=== PATIENT | male | born 1960 | race Caucasian/White ===

== ENCOUNTER 2016-11-03 01:28 | Inpatient (IN) | payer OTHER ==
--- NOTE | ~2016-11-03 | CO ---
Unit #: [id number] #: [id number] Patient: HENRIK GAMINO [id number] [place] [address] [id number] I MR#: [id number] NAME: HENRIK GAMINO ROOM: 82 Age: 56 Sex: M Admission Date: 11/03/2016 : 1960 Attending Physician: Mitchell Fernández M.D. Primary Care Physician: Primary Care Physician No Consultation Date: 11/03/2016 CONSULTATION REPORT Henrik is a 56-year-old with very poor foot hygiene. He is admitted with a very dry thick callus skin. Foot soaks will be provided to him on a daily basis. Dictated by... Sarah Beth Mcpherson P.A.-C. for Nuria Hendrickson/naesem TD: 11/12/2016 18:54 JOB #: [id number] CONSULTATION REPORT Page 1 of 1 X Sarah Beth Mcpherson CONSULTATION REPORT
--- NOTE | ~2016-11-03 | HP ---
Unit #: [id number] #: [id number] Patient: HENRIK GAMINO [id number] [place] [address] [id number] I MR#: [id number] NAME: HENRIK GAMINO. ROOM: P182 Age: 56 Sex: M Admission Date: 11/03/2016 : 1960 Attending Physician: Mitchell Fernández M.D. Admitting Physician: Mitchell Fernández M.D. Primary Care Physician: No Primary Care Physician HISTORY AND PHYSICAL HISTORY OF PRESENT ILLNESS Henrik is a 56-year-old admitted to [facility] because of his continued abuse of alcohol. PAST MEDICAL HISTORY 1. Long history of alcohol abuse. 2. History of withdrawal seizures. PAST SURGICAL HISTORY 1. Inguinal hernia repair. 2. T and A. 3. Right ear. 4. Fractured left leg, right clavicle, right elbow, and right ankle with ORIF. ALLERGIES Codeine. SOCIAL HISTORY Smokes one pack per day. Drinks on a daily basis. Denies illicit drug use. FAMILY HISTORY Medically noncontributory. REVIEW OF SYSTEMS CONSTITUTIONAL: No fever or chills. HEENT: Denies any sore throat, ear pain or runny nose. CARDIOVASCULAR: Denies chest pain, irregular heart rhythm or palpitations. CHEST: Denies shortness of breath or cough. No hemoptysis. GASTROINTESTINAL: Denies nausea, vomiting, diarrhea or chronic constipation. ENDOCRINE: Denies history of increased thirst or urination. No recent significant weight loss or gain. GENITOURINARY: Denies dysuria, frequency, or hematuria. SKIN: Denies any rashes. HEMATOLOGIC: Denies history of increased bleeding or bruising. MUSCULOSKELETAL: Denies any hot, swollen joints. No generalized muscle pain. NEUROLOGIC: Denies problems with vision or speech. No frequent, severe headaches. No numbness, tingling or weakness in any extremities. Denies loss of bladder or bowel control. Unit #: [id number] #: [id number] Patient: HENRIK GAMINO CURRENT MEDICATIONS 1. Detox protocol. 2. Triamcinolone cream to his feet. PHYSICAL EXAMINATION GENERAL: Alert, well nourished, and in no apparent distress. VITAL SIGNS: Blood pressure 120/82, heart rate 80, respirations 16, temperature 98.6, weight 145 pounds, and height 6 feet, 0 inches. SKIN: Warm and dry without rash or lesion. HEENT: Normocephalic. TMs not viewed. Oral and nasal passages clear. Conjunctivae clear. PERRLA. EOMs intact. NECK: Supple without lymphadenopathy or thyromegaly. HEART: Regular rate and rhythm without murmur. LUNGS: Clear. ABDOMEN: Soft, nontender. : Not done. EXTREMITIES: No evidence of cyanosis, clubbing or edema. Moves all without focal deficit. NEUROLOGICAL: Grossly within normal limits. Cranial Nerves: II: Visual galeano are intact. III, IV AND : Extraocular movements are intact. Pupils are equal, round and reactive to light. V: Facial sensation is grossly normal. VII: Facial movements and expression are normal. VIII: Auditory acuity grossly intact. IX, X: Uvula is midline. Phonation is normal. XI: Patient shrugs shoulders and turns head normally. XII: Tongue protrudes in the midline. Sensory and Motor Function: Sensory and motor sensation is grossly normal. Motor: moves all extremities well. Coordination: Gait is normal. Deep Tendon Reflexes: Intact. IMPRESSION Psychiatric admission. RECOMMENDATIONS PSYCHIATRIC: Per psychiatrist. MEDICAL: I see no contraindication to participating in facility's activities. MEDICAL PROGNOSIS Good. MEDICAL CONDITION Stable. Dictated by... Zane CardenasAJoe. for Nuria Hendrickson/rufina TD: 11/04/2016 09:32 JOB #: [id number] Unit #: [id number] #: [id number] Patient: HENRIK GAMINO HISTORY AND PHYSICAL Page 1 of 1 X Sarah Beth Mcpherson HISTORY AND PHYSICAL
--- NOTE | ~2016-11-03 | A ---
[facility] Nutrition Therapy DATE: 11/03/16 Patient: HENRIK GAMINO Physician: WING Address: [address] Room/Bed: [address], Zip: [place] [address] Admit Date: 11/03/16 Date of : [birth year] Height: 6 0 Weight: [phone] NUTRITIONAL ASSESSMENT: REASON: UNINTENTIONAL WEIGHT LOSS PATIENT ADMITTED FOR ETOH DETOX PMH: WITHDRAWAL SEIZURES Anthropometrics: HT: 72", WT: 145#, BMI: 19.7, %IBW: 81 Labs: NO LABS AVAILABLE Meds: DETOX PROTOCOL Assessment: PATIENT IS A 56 Y/O MALE ADMITTED FOR ETOH DETOX. PATIENT CURRENTLY WORKS [employer], LIVES WITH A FRIEND, HAS DAILY ETOH USE, FREQUENT MARIJUANA USE, AND A HX OF COCAINE ABUSE. PATIENT HAS A HX OF INPATIENT CHEMICAL DEPENDENCY TREATMENT AND IT IS NOTED THAT HIS MOTHER IN JULY 2016, WHICH HAS LED TO AN INCREASE IN HIS ETOH USE. PATIENT STATED A POOR APPETITE WITH A 15# WEIGHT LOSS OVER LAST SEVERAL MONTHS, AND HE IS NOT SLEEPING. WEIGHT HX PER [employer] SHOWS HIS UBW IS AROUND 150# FOR THE LAST 3 YEARS. LAST ADMIT 1 YEAR AGO PATIENT'S WEIGHT WAS 150#. THERE ARE CURRENTLY NO PO INTAKES D/T PATIENT ADMITTED TO FACILITY TODAY. THERE ARE NO SKIN OR GI ISSUES NOTED ATT. PATIENT'S BMI IS WITHIN A HEALTHY RANGE, HOWEVER HIS IBW IS 81%. PATIENT IS ON A REGULAR VEGETARIAN DIET WITH NO CAFFEINE, AND HE IS RECEIVING ENSURE TID. Dx: UNINTENTIONAL WEIGHT LOSS R/T ETOH ABUSE AEB SELF-REPORTED WEIGHT LOSS AND DECREASED APPETITE, IBW <90%, NUTRITIONAL RISK POINT Intervention: REGULAR VEGETARIAN DIET, SUPPLEMENTS, MEDS PER MD, DETOX, PSYCH Monitoring, Evaluation and Goals: 1. ADEQUATE PO INTAKES >50% OF MEALS 2. PREVENT, CORRECT MICRO/MACRO NUTRIENT DEFICIENCIES 3. WEIGHT; PREVENT ANY FURTHER WEIGHT LOSS MONITOR: WEIGHTS, LABS, PO/FLUID/SUPPLEMENT INTAKES Recommendations: 1. CONTINUE REGULAR VEGETARIAN DIET WITH NO CAFFEINE AND ENSURE TID TOLERATED. OFFER SNACKS BETWEEN MEALS. IF PATIENT HAS C/O HUNGER SEND ORDER FOR LARGER PORTIONS AND RD WILL APPROVE [facility] Nutrition Therapy DATE: 11/03/16 Patient: HENRIK GAMINO Physician: WING Address: [address] Room/Bed: [address] [place] [address], Zip: [place] [address] Admit Date: 11/03/16 Date of : [birth year] Height: 6 0 Weight: 144 65.38625 2. ENCOURAGE ADEQUATE PO, FLUID, AND SUPPLEMENT INTAKES 3. OBTAIN WEIGHTS ROUTINELY (EVERY 3-4 DAYS) RD TO F/U PER PROTOCOL AND PRN R/T PATIENT MILDLY COMPROMISED Respectfully, ILDA DEAN RD, LD [facility] cc: client file
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
--- NOTE | ~2016-11-03 | DS ---
Unit #: [id number] #: [id number] Patient: HENRIK GAMINO [id number] [place] [address] [id number] I MR#: [id number] NAME: HENRIK GAMINO. ROOM: P182 Age: 56 Sex: M Admission Date: 11/03/2016 : 1960 Discharge Date: 11/07/2016 Attending Physician: Mitchell Fernández M.D. Primary Care Physician: Primary Care Physician No DISCHARGE SUMMARY REASON FOR ADMISSION This patient is a 56-year-old male who has a long history of alcohol abuse. This patient came to the hospital requesting alcohol detox. DIAGNOSTIC STUDIES LABORATORY RESULTS: Please see hospital medical records. HOSPITAL COURSE This patient was admitted for alcohol detox. He was placed on appropriate medications to assist with withdrawal. He is attending groups and participated in unit activities. The patient requested discharge on 10/28/2016. He denied any SI or HI and contracts for safety. The patient plans to follow up with AA meetings and obtain AA sponsor. The patient says he is aware of the community resources. The patient was seen the day before and reported a few shakes, but no other withdrawal symptoms. His appetite and sleep had been adequate. The patient will be discharged upon his request. DISCHARGE DIAGNOSES AXIS I: 1. Alcohol use disorder. 2. Depressive disorder, not otherwise specified. AXIS II: Deferred. AXIS III: History of withdrawal seizures and history of withdrawal delirium. AXIS IV: AXIS V: DISCHARGE INSTRUCTIONS The patient is encouraged to follow up with AA meetings and obtain AA sponsor. The patient says he is aware of the community resources available for his substance abuse issues. DISCHARGE MEDICATIONS None. DISCHARGE CONDITION Improved. No active withdrawal. PROGNOSIS Fair. DIET AND ACTIVITY Unit #: [id number] #: [id number] Patient: HENRIK GAMINO Per his primary care physician. Dictated by... Kandi Salgado A.P.R.N. for Mitchell Fernández M.D. MIHIR/modl TD: 11/30/2016 02:36 JOB #: [id number] DISCHARGE SUMMARY Page 1 of 1 X Kandi Salgado X DISCHARGE SUMMARY
[2016-11-03 12:29] LABS: BASOPHIL# 0.1 X10e3 (0-0.3); BASOPHIL% 1.4 % (0-2.5); DIFF IND NO; EOSINOPHIL# 0.1 X10e3 (0-0.7); EOSINOPHIL% 1.7 % (0.0-7.0); HEMATOCRIT 35.6 % (38.0-50.0); HEMOGLOBIN 11.8 gm/dL (13.0-16.0); LYMPHOCYTE# 1.1 X10e3 (1.0-3.5); LYMPHOCYTE% 21.3 % (17.0-45.0); MEAN CELL VOLUME 100.4 FL (83-96); MEAN CORPUSCULAR HEMOGLOBIN 33.3 PG (28-34); MEAN CORPUSCULAR HGB CONC 33.2 g/dL (30-36); MEAN PLATELET VOLUME 8.1 FL (6.5-11.5); MONOCYTE# 0.8 X10e3 (0-1.0); NEUTROPHIL# 3.2 X10e3 (1.5-7.1); NEUTROPHIL% 60.6 % (40-75); PLATELET COUNT 195 X10e3 (140-420); RED BLOOD COUNT 3.54 X10e (3.90-5.60); RED CELL DISTRIBUTION WIDTH 13.6 % (11.0-15.5); WHITE BLOOD COUNT 5.3 X10e3 (4.0-10.5)
[2016-11-03 12:39] LABS: BILIRUBIN,TOTAL 0.5 mg/dL (0.2-2.0); BUN/CREATININE RATIO 15.71; CALCIUM SERUM 8.7 mg/dL (8.4-10.2); CREATININE SERUM 0.7 mg/dL (0.6-1.4); GLOM FILT RATE Estimated 106.3 mL/min (>60); POTASSIUM 4.3 mmol/L (3.5-5.1)
== END 2016-11-07 17:15 | disposition home or self-care (01) | DRG 897 ==
LOC: P1E 04:36
PROVIDERS: Psychiatry & Neurology Psychiatry
PROC: HZ2ZZZZ Detoxification Services for Substance Abuse Treatment (ICD-10-PCS; principal; 2016-11-03)
DX: F10.230 Alcohol dependence with withdrawal, uncomplicated (principal); F32.9 Major depressive disorder, single episode, unspecified; G40.509 Epileptic seizures related to external causes, not intractable, without status epilepticus; F17.210 Nicotine dependence, cigarettes, uncomplicated
CPT/HCPCS: 80053; 85025; 86592